=== PATIENT | female | born 1965 | race African-American/Black ===

== ENCOUNTER 2017-01-04 06:35 | Emergency (ER) | payer OTHER ==
[2017-01-04] MEDS ORDERED: Ibuprofen 800 MG TAB ONE (06:57)
--- NOTE | 2017-01-04 08:22 | RAD ---
LEFT SHOULDER 3 VIEWS: Date: 01/04/17 HISTORY: Left shoulder pain. Injury. COMPARISON: None. FINDINGS: No acute fracture or malalignment. Ribs are unremarkable. IMPRESSION: No acute injury. POS: MED
== END 2017-01-04 07:43 | disposition home or self-care (01) ==
LOC: ERS 06:35
DX: S43.402A Unspecified sprain of left shoulder joint, initial encounter (principal); I10 Essential (primary) hypertension; F17.210 Nicotine dependence, cigarettes, uncomplicated; X50.9XXA Other and unspecified overexertion or strenuous movements or postures, initial encounter

== ENCOUNTER 2017-04-11 10:50 | Emergency (ER) | payer OTHER ==
[2017-04-11 11:22] LABS: Bilirubin Small (Negative); Blood, Urine Moderate (Negative); Clarity Cloudy (Clear); Glucose, Urine (Dipstick) Negative (Negative); Leukocyte Negative (Negative); Nitrite Negative (Negative); Protein, Urine (Dipstick) > or equal to 300 mg/dL (Neg-Trace); Specific Gravity, Urine 1.033 (1.002-1.036); Urobilinogen 0.2 mg/dL (0.2-1.0); pH, Urine 5.5 (5.0-9.0)
[2017-04-11 11:24] LABS: Pregnancy Test - Urine (BHCG) Negative (Negative); Pregu Control Background? CLEAR/WHITE (CLR/WHITE); Pregu Control Bar Appear? YES (CONTROL BAR); Specific Gravity 1.033 (1.002-1.036)
[2017-04-11] MEDS ORDERED: Ketorolac Tromethamine 60 MG/2 ML VIAL ONE (11:28)
[2017-04-11] MEDS ORDERED: Ondansetron ODT 4 MG TAB ONE (11:29)
[2017-04-11 11:32] LABS: Bacteria/HPF 1+ HPF (None Seen); WBC/HPF 0-3 HPF (0-3)
[2017-04-11 11:33] LABS: Crystals/HPF 1+ AMORPH URATES HPF (Negative); Hyaline Casts/LPF 0-3 HYALINE CAST LPF (0-3 Hyaline); Other Casts/LPF 0-3 FINELY GRAN LPF (0-3 Hyaline)
== END 2017-04-11 12:09 | disposition home or self-care (01) ==
LOC: SCSER 10:50
DX: R11.2 Nausea with vomiting, unspecified (principal); I10 Essential (primary) hypertension; F17.210 Nicotine dependence, cigarettes, uncomplicated
CPT/HCPCS: 81003; 81015; 81025; 87086; 87804; 99284; J1885; Q0162

== ENCOUNTER 2017-06-28 12:26 | Outpatient (CLI) | payer OTHER ==
--- NOTE | 2017-07-12 15:33 | ULT ---
LOWER EXTREMITY ARTERIAL EVALUATION: Lower extremity arterial evaluation was performed using Doppler waveform analysis and segmental limb pressures. Waveforms are essentially normal in both lower extremities from femoral to pedal vessels with ankle-a rm index slightly elevated on the right at 1.48 and on the left at 1.36. Toe-brachial index normal. This is a normal resting arterial study of the lower extremities and would not be consistent with vas cular claudication.
== END 2017-06-28 12:27 | disposition home or self-care (01) ==
LOC: ULT 12:26
PROVIDERS: ATTEND Family Medicine
DX: R29.898 Other symptoms and signs involving the musculoskeletal system (principal)
CPT/HCPCS: 93923

== ENCOUNTER 2017-12-27 07:49 | Day surgery (SDC) | payer OTHER ==
[2017-12-24 08:38] VITALS: BMI 36.3
[2017-12-27 08:24] LABS: Hemoglobin 14.8 g/dL (12.0-16.0); Mean Corpuscular HGB CONC 31.7 g/dL (32.0-36.0); Mean Corpuscular Hemoglobin 27.1 pg (27.0-31.0); Mean Corpuscular Volume 85.5 fL (78.0-98.0); Mean Platelet Volume 9.2 fL (7.4-10.4); Platelet Count 262 thou/uL (130-400); Red Blood Cell (RBC) Count 5.45 mill/uL (4.20-5.40); White Blood Cell (WBC) Count 7.2 thou/uL (4.8-10.8)
[2017-12-27 08:34] LABS: Prothrombin Time 13.1 SEC (12.0-14.7)
[2017-12-27 08:40] LABS: Eosinophils 2 % (0-10); Lymphocytes 25 % (21-51); MDiff Complete? YES; Monocytes 2 % (0-10); Neutrophil 71 % (42-75); PLT Morphology Comment Appears Adequate
[2017-12-27 08:47] LABS: Anion Gap 12 mmol/L (10-20); BUN (Urea Nitrogen) 11 mg/dL (9.8-20.1); Calc. Creatinine Clearance 122 mL/min (70-130); Calcium 9.9 mg/dL (7.8-10.44); Carbon Dioxide 22 mmol/L (22-29); Chloride 110 mmol/L (98-107); Estimated GFR-MDRD 89; Glucose 90 mg/dL (70-105); Potassium 3.9 mmol/L (3.5-5.1); Sodium 140 mmol/L (136-145)
[2017-12-27] MEDS ORDERED: Lidocaine 1% (PF) 30 ML VIAL ONE (09:41)
[2017-12-27] MEDS ORDERED: Propofol 500 MG/50 ML VIAL ONE ×3 (09:41→10:34)
[2017-12-27] MEDS ORDERED: Midazolam HCl 2 mg/2 ml Vial ONE (10:01)
[2017-12-27] MEDS ORDERED: Fentanyl 100 MCG/2 ML VIAL ONE (10:07)
[2017-12-27] MEDS ORDERED: Isoproterenol 0.2 MG/1 ML AMP ONE (10:13)
[2017-12-27] MEDS ORDERED: PROPOFOL 200 MG/20 ML VIAL ONE (10:49)
--- NOTE | 2017-12-27 11:22 | OP ---
DATE OF PROCEDURE: 12/27/2017 SURGEON: Dr. Nai Vee PROCEDURE: SVT ablation. PREOPERATIVE DIAGNOSIS: Supraventricular tachycardia. PROCEDURE DETAILS: The patient came to the EP Lab in the postabsorptive state. Informed consent was obtained. A timeout was called. The patient was sedated by a member of the Anesthesia staff. Once patient was adequately sedated, the right and left femoral regions were prepped and draped in usual sterile fashion. Using a modified Seldinger technique and with ultrasound guided access, access was obtained x2 in the right femoral vein and x2 in the left femoral vein, an 8 Italian sheath and a 6 German nch sheath were advanced in the right femoral vein, two 6 Italian sheaths were placed in the left femo ral vein. A quadripolar catheter was advanced from the right femoral vein placed in the high right a trium. A Decapolar catheter was advanced in the right femoral vein, placed into the coronary sinus f or left atrial pacing and recording and an octapolar catheter was advanced in the left femoral vein, placed in the His bundle and a Decapolar catheter was advanced in the left groin for RV pacing and re cording. Basic intervals were as follows; cycle length was 523, W[place] interval 159. QRS 73, QT 328, AH was 97 an d HV was 37 milliseconds. AV Wenckebach occurred at approximately 270 milliseconds. AV darwin reentr ant tachycardia was easily inducible with AV pacing. VA conduction was present and concentric. Paci ng in the coronary sinus lead to easily inducible AV NRT. The ventricular overdrive pacing demonstr ated AV response, excluding the possibility of atrial tachycardia. Based on this, the atrial cathete r was removed and an S-curve 4 mm tip Biosense ablation catheter was advanced. A 3D anatomical map w as made of the His bundle region and the ablation catheter was placed along the slow pathway area usi ng the fluoroscopic an electrophysiologic guidance. RF was delivered in that region initially a 15 s econd lesion and then a 30 second lesion with good junctional beats. After this, the patient was no longer inducible for any SVT with and without isoproterenol boluses. The patient tolerated the proce dure well. The catheters were removed, sheaths were removed and hemostasis obtained with manual pres sure. POSTOPERATIVE DIAGNOSIS: SVT. COMPLICATIONS: None acute. ESTIMATED BLOOD LOSS: Less than 30 mL. CONCLUSIONS: 1. Normal AV conduction. 2. Easily inducible AV node reentrant tachycardia. 3. 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 PROCEDURE PERFORMED: Comprehensive EP study, CS LA pacing drug and 3D mapping. RECOMMENDATIONS: The patient will follow up with Dr. Johnson.
== END 2017-12-27 14:31 | disposition home or self-care (01) ==
LOC: CCL 07:49
PROVIDERS: ATTEND Specialist
PROC: 02583ZZ Destruction of Conduction Mechanism, Percutaneous Approach (ICD-10-PCS; principal; 2017-12-27)
PROC: 4A023FZ Measurement of Cardiac Rhythm, Percutaneous Approach (ICD-10-PCS; principal; 2017-12-27)
PROC: 4A0234Z Measurement of Cardiac Electrical Activity, Percutaneous Approach (ICD-10-PCS; principal; 2017-12-27)
PROC: 02K83ZZ Map Conduction Mechanism, Percutaneous Approach (ICD-10-PCS; principal; 2017-12-27)
DX: I47.1 Supraventricular tachycardia (principal); K21.9 Gastro-esophageal reflux disease without esophagitis; I10 Essential (primary) hypertension; Z79.82 Long term (current) use of aspirin; Z79.899 Other long term (current) drug therapy
CPT/HCPCS: 36415; 76942; 80048; 85025; 85610; 93005; 93010; 93613; 93620; 93623; 93653; C1730; C1769; J1644; J2001; J2250; J2704; J3010

== ENCOUNTER 2018-03-06 07:44 | Emergency (ER) | payer OTHER ==
[2018-03-06] MEDS ORDERED: Ondansetron PF 4 MG/2 ML Vial ONE (08:24)
[2018-03-06 08:36] LABS: #Monocytes 0.7 thou/uL (0.11-0.59); #Neutrophils 7.5 thou/uL (1.40-6.50); %Basophils 0.3 % (0.0-1.0); %Eosinophils 0.1 % (0.0-10.0); %Lymphocytes 19.5 % (21.0-51.0); %Monocytes 6.4 % (0.0-10.0); %Neutrophils 73.7 % (42.0-75.0); Hemoglobin 14.7 g/dL (12.0-16.0); Mean Platelet Volume 9.2 fL (7.4-10.4); Platelet Count 260 thou/uL (130-400); RBC Distribution Width 13.3 % (11.5-14.5); Red Blood Cell (RBC) Count 5.66 mill/uL (4.20-5.40); White Blood Cell (WBC) Count 10.1 thou/uL (4.8-10.8)
[2018-03-06 08:58] LABS: Bilirubin Negative (Negative); Blood, Urine Large (Negative); Clarity TURBID (Clear); Glucose, Urine (Dipstick) Negative (Negative); Leukocyte Negative (Negative); Nitrite Negative (Negative); Protein, Urine (Dipstick) 300 mg/dL (Neg-Trace); Specific Gravity, Urine 1.031 (1.002-1.036); Urobilinogen 0.2 mg/dL (0.2-1.0); pH, Urine 5.5 (5.0-9.0)
[2018-03-06 09:02] LABS: ALT (SGPT) 21 U/L (8-55); AST (SGOT) 20 U/L (5-34); Albumin 4.6 g/dL (3.5-5.0); Alkaline Phosphatase 108 U/L (40-150); Anion Gap 15 mmol/L (10-20); BUN (Urea Nitrogen) 16 mg/dL (9.8-20.1); Bilirubin, Total 0.4 mg/dL (0.2-1.2); Calc. Creatinine Clearance 0 mL/min (70-130); Calcium 10.4 mg/dL (7.8-10.44); Carbon Dioxide 24 mmol/L (22-29); Chloride 104 mmol/L (98-107); Estimated GFR-MDRD 76; Globulin 4.2 g/dL (2.4-3.5); Glucose 128 mg/dL (70-105); Hyaline Casts/LPF 0-3 HYALINE CAST LPF (0-3 Hyaline); Lipase 5 U/L (8-78); Pathc Cast-AUWi Flag 0.29 (0-2.49); Potassium 3.9 mmol/L (3.5-5.1); Protein, Total 8.8 g/dL (6.0-8.3); Sodium 139 mmol/L (136-145); WBC/HPF 0-3 HPF (0-3)
[2018-03-06 09:21] LABS: Bacteria/HPF Rare-Few HPF (None Seen); Crystals/HPF 4+ AMORPH URATES HPF (Negative); Yeast-All Forms None Seen HPF (None Seen)
== END 2018-03-06 09:35 | disposition home or self-care (01) ==
LOC: ERS 07:44
DX: K52.9 Noninfective gastroenteritis and colitis, unspecified (principal); I10 Essential (primary) hypertension; I48.91 Unspecified atrial fibrillation; K21.9 Gastro-esophageal reflux disease without esophagitis; F17.210 Nicotine dependence, cigarettes, uncomplicated; Z79.82 Long term (current) use of aspirin; Z79.899 Other long term (current) drug therapy
CPT/HCPCS: 36415; 80053; 81003; 81015; 83690; 85025; 87086; 96361; 96374; J2405

== ENCOUNTER 2018-06-03 15:46 | Outpatient (CLI) | payer OTHER ==
--- NOTE | 2018-06-13 13:19 | MMO ---
Bilateral MAMMO Bilat Screen [facility]. CLINICAL HISTORY: Patient is 53 years old and is seen for screening. The patient has no family history of breast cancer. The patient has no personal history of cancer. VIEWS: The views performed were: bilateral craniocaudal with tomosynthesis and bilateral mediolateral oblique with tomosynthesis. FILMS COMPARED: The present examination has been compared to prior imaging studies performed at [facility] on 12/26/2015 and 01/08/2016. MAMMOGRAM FINDINGS: There are scattered fibroglandular densities. Finding 1: Benign calcifications are noted bilaterally. There are no suspicious masses, calcifications or areas of architectural distortion. Finding 2: There is a stable intramammary lymph node seen in the right breast. IMPRESSION: ALL ABOVE FINDINGS ARE BENIGN. A ROUTINE FOLLOW-UP MAMMOGRAM IN 1 YEAR IS RECOMMENDED. THE RESULTS OF THIS EXAM WERE SENT TO THE PATIENT. ACR BI-RADS Category 2 - Benign finding MAMMOGRAPHY NOTE: 1. A negative mammogram report should not delay a biopsy if a dominant of clinically suspicious mass is present. 2. Approximately 10% to 15% of breast cancers are not detected by mammography. 3. Adenosis and dense breasts may obscure an underlying neoplasm.
== END 2018-06-03 15:47 | disposition home or self-care (01) ==
LOC: BICMAMMO 15:46
PROVIDERS: ATTEND Family Medicine
DX: Z12.31 Encounter for screening mammogram for malignant neoplasm of breast (principal)
CPT/HCPCS: 77063; 77067

== ENCOUNTER 2018-09-08 09:17 | Outpatient (CLI) | payer OTHER ==
--- NOTE | 2018-09-08 09:16 | MRI ---
MRI Lumbar Spine Noncontrast: HISTORY: Degenerative disc disease lumbar spine. Patient complains of low back pain for months with radiation of pain into both legs. COMPARISON: None FINDINGS: The visualized retroperitoneal structures demonstrate a normal appearance. Conus medullaris is normal in morphology and is low lying terminating at the L2-3 level. Endplate degenerative changes are seen at the L4-5 and L5-S1 intervertebral disc spaces. T11-12 level: There is a mild disc osteophyte complex which narrows the ventral subarachnoid space. T he right neural foramen is patent, there is mild left-sided neural foraminal narrowing. T12-L1 level: There is no disc bulge or disc herniation. Central spinal canal and neural foramina are patent. L1-2: There is no disc bulge or disc herniation. Central spinal canal and neural foramina are patent. L2-3: There is no disc bulge or disc herniation. Central spinal canal and neural foramina are patent. Mild facet degenerative changes are present. L3-4: There is mild loss of intervertebral disc height. There is broad-based disc osteophyte complex present. Facet hypertrophic changes and ligamentous thickening are noted. There is mild generalized narrowing of the central spinal canal. Neural foramina are patent. L4-5: There is trace grade 1 anterolisthesis of L4 on L5. This was also seen on radiographs of the dexter mbar spine on 06/24/2017. There are prominent facet hypertrophic changes noted as well as ligamentous thickening. A mild broad-based disc osteophyte complex is present. There is no significant narrowing of the central spinal canal. Mild bilateral neural foraminal narrowing is present greater on the right. L5-S1: There is loss of intervertebral disc height with endplate degenerative changes. There is mild broad-based disc osteophyte complex present with facet hypertrophic changes noted. Osteophytes are seen anteriorly at this level. There is no significant narrowing of the central spinal canal. Moderat e right sided neural foraminal narrowing with mild/moderate left-sided neural foraminal narrowing is present. IMPRESSION: 1. Degenerative changes in the lumbar spine greatest at the L4-5 and L5-S1 levels. There is moderate right and mild to moderate left-sided neural foraminal narrowing at the L5-S1 level. 2. Trace anterolisthesis of L4 on L5 related to prominent facet degenerative changes.
== END 2018-09-08 09:18 | disposition home or self-care (01) ==
LOC: BICMRI 09:17
PROVIDERS: ATTEND Family Medicine
DX: M51.36 Other intervertebral disc degeneration, lumbar region (principal); M47.816 Spondylosis without myelopathy or radiculopathy, lumbar region; M47.817 Spondylosis without myelopathy or radiculopathy, lumbosacral region; M48.07 Spinal stenosis, lumbosacral region
CPT/HCPCS: 72148

== ENCOUNTER 2018-10-06 04:31 | Emergency (ER) | payer OTHER ==
[2018-10-06] MEDS ORDERED: Ibuprofen 800 MG TAB ONE (05:13)
--- NOTE | 2018-10-06 07:41 | RAD ---
3 views thoracic spine: 10/06/2018 COMPARISON: None HISTORY: Injury, trauma, pain FINDINGS: At C5-6 and C6-7 there is disc space narrowing and anterior osteophyte formation noted on t he swimmer's lateral view. PA and lateral imaging of the thoracic spine also provided, demonstrating mild disc space narrowing a nd anterior osteophyte formation at T11-12. Thoracic pedicles appear intact on frontal imaging. No displaced fracture. IMPRESSION: Degenerative disc disease as detailed above.
== END 2018-10-06 05:38 | disposition home or self-care (01) ==
LOC: ERS 04:31
DX: S20.229A Contusion of unspecified back wall of thorax, initial encounter (principal); I48.91 Unspecified atrial fibrillation; K21.9 Gastro-esophageal reflux disease without esophagitis; I10 Essential (primary) hypertension; Z79.899 Other long term (current) drug therapy; Z79.82 Long term (current) use of aspirin; Y04.0XXA Assault by unarmed brawl or fight, initial encounter
CPT/HCPCS: 72072

== ENCOUNTER 2019-03-24 20:46 | Emergency (ER) | payer OTHER ==
[2019-03-24] MEDS ORDERED: Acetaminophen 500 MG TAB ONE (20:59)
--- NOTE | 2019-03-24 21:27 | RAD ---
XR Hip Lt 2-3 View HISTORY: Hip pain. COMPARISON: None. FINDINGS: There is no signs of fracture or dislocation. Minimal osteophytic changes along the acetabu lum are noted. No joint space narrowing. IMPRESSION: No acute changes.
--- NOTE | 2019-03-24 21:28 | RAD ---
XR Wrist 3 Lt View STANDARD HISTORY: Wrist pain COMPARISON: None FINDINGS: Fairly minimal arthritic changes of the triscaphe the and first carpal metacarpal joint spa alfredo are seen. Small cyst is seen involving the lunate with a borderline ulna plus variant, this raises the possibility of an underlying triangular fibrocartilage injury. No acute changes. IMPRESSION: No acute findings.
== END 2019-03-24 21:55 | disposition home or self-care (01) ==
LOC: ERS 20:46
DX: M25.532 Pain in left wrist (principal); M25.552 Pain in left hip; I10 Essential (primary) hypertension; K21.9 Gastro-esophageal reflux disease without esophagitis; I48.91 Unspecified atrial fibrillation; F17.210 Nicotine dependence, cigarettes, uncomplicated; Z79.82 Long term (current) use of aspirin; Z79.899 Other long term (current) drug therapy; W10.9XXA Fall (on) (from) unspecified stairs and steps, initial encounter; Y99.0 Civilian activity done for income or pay

== ENCOUNTER 2019-08-23 09:28 | Outpatient (CLI) | payer OTHER ==
--- NOTE | 2019-08-23 10:48 | MMO ---
Bilateral MAMMO Bilat Diag [facility]. CLINICAL HISTORY: Patient is 54 years old and is seen for diagnostic exam and palpable abnormality in the right breast. The patient has no family history of breast cancer. The patient has no personal history of cancer. VIEWS: The views performed were: bilateral craniocaudal with tomosynthesis; bilateral mediolateral oblique with tomosynthesis; and bilateral mediolateral with tomosynthesis. FILMS COMPARED: The present examination has been compared to prior imaging studies performed at [facility] on 01/08/2016, 06/03/2018 and 08/23/2019. This study has been interpreted with the assistance of computer-aided detection. MAMMOGRAM FINDINGS: The breasts are almost entirely fat. Finding 1: There are stable benign appearing calcifications seen in both breasts. Finding 2: There is a stable intramammary lymph node seen in the upper-outer region of the right breast. This corresponds to the area of palpable concern. No additional abnormality is evident in this location sonographically. There are no suspicious masses, suspicious calcifications, or new areas of architectural distortion. IMPRESSION: THERE IS NO MAMMOGRAPHIC EVIDENCE OF MALIGNANCY. A ROUTINE FOLLOW-UP MAMMOGRAM IN 1 YEAR IS RECOMMENDED. THE RESULTS OF THIS EXAM WERE SENT TO THE PATIENT. ACR BI-RADS Category 2 - Benign finding MAMMOGRAPHY NOTE: 1. A negative mammogram report should not delay a biopsy if a dominant of clinically suspicious mass is present. 2. Approximately 10% to 15% of breast cancers are not detected by mammography. 3. Adenosis and dense breasts may obscure an underlying neoplasm. Reported by: LORETO AYALA MD Electonically Signed: [id number]
--- NOTE | 2019-08-23 10:49 | ULT ---
EXAM: US Breast Limited Right PROVIDED CLINICAL HISTORY: Right breast palpable abnormality COMPARISON: Concurrently performed diagnostic mammogram Prior screening mammograms FINDINGS: Limited sonographic interrogation was performed of the right breast in the region of palpable concern . An intramammary lymph node is demonstrated in this location. There is diffuse cortical thickening with preservation of hilum. This measures approximately 9 mm. This appears mammographically stable wi th respect to multiple prior examinations. IMPRESSION: Palpable abnormality corresponds to a mammographically stable intramammary lymph node. BI-RADS 2 -- benign findings
--- NOTE | 2019-08-23 11:46 | ULT ---
EXAM: US Breast Limited Right PROVIDED CLINICAL HISTORY: Right breast palpable abnormality COMPARISON: Concurrently performed diagnostic mammogram Prior screening mammograms FINDINGS: Limited sonographic interrogation was performed of the right breast in the region of palpable concern . An intramammary lymph node is demonstrated in this location. There is diffuse cortical thickening with preservation of hilum. This measures approximately 9 mm. This appears mammographically stable wi th respect to multiple prior examinations. IMPRESSION: Palpable abnormality corresponds to a mammographically stable intramammary lymph node. BI-RADS 2 -- benign findings Transcribed Date/Time: 08/23/2019 11:46 AM BI-RADS 2 -- benign findings
== END 2019-08-23 09:29 | disposition home or self-care (01) ==
LOC: BICMAMMO 09:28
PROVIDERS: ATTEND Family Medicine
DX: N63.10 Unspecified lump in the right breast, unspecified quadrant (principal)
CPT/HCPCS: 77066; G0279

== ENCOUNTER 2020-06-13 11:18 | Outpatient (CLI) | payer OTHER | END 2020-06-13 11:19 | disposition home or self-care (01) | LOC: BICMRI 11:18 | PROVIDERS: ATTEND Family Medicine | DX: M65.4 Radial styloid tenosynovitis [de Quervain] (principal) ==

== ENCOUNTER 2020-07-18 10:11 | Emergency (ER) | payer OTHER ==
[2020-07-18] MEDS ORDERED: Ondansetron PF 4 MG/2 ML Vial ONE (10:26)
[2020-07-18 10:44] LABS: #Basophils 0.1 thou/uL (0.0-0.2); #Lymphocytes 1.7 thou/uL (1.20-3.40); #Monocytes 0.5 thou/uL (0.11-0.59); #Neutrophils 1.9 thou/uL (1.40-6.50); %Basophils 1.7 % (0.0-1.0); %Eosinophils 0.3 % (0.0-10.0); %Lymphocytes 39.5 % (21.0-51.0); %Monocytes 12.6 % (0.0-10.0); %Neutrophils 45.9 % (42.0-75.0); Hemoglobin 15.6 g/dL (12.0-16.0); Mean Corpuscular HGB CONC 32.5 g/dL (32.0-36.0); Mean Corpuscular Hemoglobin 27.3 pg (27.0-31.0); Mean Corpuscular Volume 84.1 fL (78.0-98.0); Mean Platelet Volume 9.9 fL (7.4-10.4); Platelet Count 197 thou/uL (130-400); RBC Distribution Width 13.4 % (11.5-14.5); Red Blood Cell (RBC) Count 5.71 mill/uL (4.20-5.40); White Blood Cell (WBC) Count 4.2 thou/uL (4.8-10.8)
[2020-07-18 11:01] LABS: ALT (SGPT) 21 U/L (8-55); AST (SGOT) 28 U/L (5-34); Albumin 4.6 g/dL (3.5-5.0); Alkaline Phosphatase 110 U/L (40-110); Anion Gap 16 mmol/L (10-20); BUN (Urea Nitrogen) 10 mg/dL (9.8-20.1); Bilirubin, Total 0.3 mg/dL (0.2-1.2); Calc. Creatinine Clearance 0 mL/min (70-130); Calcium 9.9 mg/dL (7.8-10.44); Carbon Dioxide 20 mmol/L (22-29); Chloride 104 mmol/L (98-107); Globulin 4.2 g/dL (2.4-3.5); Glucose 122 mg/dL (70-105); Lipase 20 U/L (8-78); Potassium 3.6 mmol/L (3.5-5.1); Protein, Total 8.8 g/dL (6.0-8.3); Sodium 136 mmol/L (136-145)
== END 2020-07-18 13:05 | disposition home or self-care (01) ==
LOC: ERS 10:11
DX: R11.2 Nausea with vomiting, unspecified (principal); R19.7 Diarrhea, unspecified; R10.84 Generalized abdominal pain; Z79.899 Other long term (current) drug therapy; Z79.82 Long term (current) use of aspirin; I10 Essential (primary) hypertension; K21.9 Gastro-esophageal reflux disease without esophagitis; I48.91 Unspecified atrial fibrillation; F17.210 Nicotine dependence, cigarettes, uncomplicated
CPT/HCPCS: 80053; 83690; 85025; 96374; J2405

== ENCOUNTER 2020-09-18 11:12 | Outpatient (CLI) | payer OTHER | END 2020-09-18 11:13 | disposition home or self-care (01) | LOC: BICMAMMO 11:12 | PROVIDERS: ATTEND Family Medicine | DX: Z12.31 Encounter for screening mammogram for malignant neoplasm of breast (principal) | CPT/HCPCS: 77063; 77067 ==

== ENCOUNTER 2020-12-25 07:22 | Outpatient (CLI) | payer OTHER | END 2020-12-25 07:23 | disposition home or self-care (01) | LOC: RAD 07:22 | PROVIDERS: ATTEND Family Medicine | DX: M25.511 Pain in right shoulder (principal) ==

== ENCOUNTER 2021-02-18 08:43 | Emergency (ER) | payer OTHER ==
[2021-02-18] MEDS ORDERED: Fluorescein Opthalmic Strip ONE (09:51)
[2021-02-18] MEDS ORDERED: Proparacaine 0.5% Opth 15 ML BOT ONE (09:51)
== END 2021-02-18 10:40 | disposition home or self-care (01) ==
LOC: ERS 08:43
DX: H10.89 Other conjunctivitis (principal); I10 Essential (primary) hypertension; E78.5 Hyperlipidemia, unspecified; E78.00 Pure hypercholesterolemia, unspecified; I48.91 Unspecified atrial fibrillation; K21.9 Gastro-esophageal reflux disease without esophagitis; F17.210 Nicotine dependence, cigarettes, uncomplicated; Z79.82 Long term (current) use of aspirin; Z79.899 Other long term (current) drug therapy
CPT/HCPCS: 99283

== ENCOUNTER 2021-09-08 07:37 | Emergency (ER) | payer OTHER, BC ==
[2021-09-08] MEDS ORDERED: Ketorolac Tromethamine 30 MG/ML VIAL ONE (08:21)
[2021-09-08] MEDS ORDERED: Acetaminophen 500 MG TAB ONE (08:21)
== END 2021-09-08 09:35 | disposition home or self-care (01) ==
LOC: ERS 07:37
DX: S39.012A Strain of muscle, fascia and tendon of lower back, initial encounter (principal); M25.552 Pain in left hip; V43.53XA Car driver injured in collision with pick-up truck in traffic accident, initial encounter
CPT/HCPCS: 72170; 96372; J1885

== ENCOUNTER 2022-02-09 14:41 | Outpatient (CLI) | payer BC | END 2022-02-09 14:42 | disposition home or self-care (01) | LOC: BICMAMMO 14:41 | PROVIDERS: ATTEND Family Medicine | DX: N63.14 Unspecified lump in the right breast, lower inner quadrant (principal) | CPT/HCPCS: 77066; G0279 ==

== ENCOUNTER 2024-01-06 06:38 | Emergency (ER) | payer BC | END 2024-01-06 07:17 | disposition home or self-care (01) | LOC: ERS 06:38 | DX: L02.213 Cutaneous abscess of chest wall (principal); E78.5 Hyperlipidemia, unspecified; I10 Essential (primary) hypertension | CPT/HCPCS: 10060 ==

== ENCOUNTER 2024-10-13 06:57 | Day surgery (SDC) | payer OTHER ==
[2024-10-09 15:38] VITALS: BMI 36.6
[2024-10-13] MEDS ORDERED: Bupivacaine 0.25% HCL 30 ML VIAL ONE (07:51)
[2024-10-13] MEDS ORDERED: Ropivacaine 0.2% HCl/PF 20 ML ONE (08:21)
[2024-10-13] MEDS ORDERED: Ropivacaine 0.5% HCl/PF (150 MG/30 ML VIAL) ONE (08:21)
[2024-10-13] MEDS ORDERED: fentaNYL PF 100 MCG/2 ML SYRINGE ONE (08:22)
[2024-10-13] MEDS ORDERED: PROPOFOL 40 ML ONE (08:22)
[2024-10-13] MEDS ORDERED: Ondansetron PF 4 MG/2 ML Vial ONE (08:23)
[2024-10-13] MEDS ORDERED: Lidocaine 1% PF 5 ML VIAL ONE (08:23)
[2024-10-13] MEDS ORDERED: CEFAZOLIN 2 GM VIAL ONE (09:11)
[2024-10-13] MEDS ORDERED: Ondansetron PF 4 MG/2 ML Vial IVP PRN (09:15)
[2024-10-13] MEDS ORDERED: HYDROcodone/Acetaminophen 10/325 mg Tablet PO PRN ×2 (09:15)
[2024-10-13] MEDS ORDERED: Ropivacaine 0.2% 550 ML 550 ML NERVE BLCK SCH (09:15)
[2024-10-13] MEDS ORDERED: PHENYLEPHRINE-NS 100 MCG/ML 10 ML SYRINGE ONE ×2 (09:49→10:17)
[2024-10-13] MEDS ORDERED: Rocuronium Bromide 10 MG/ML (10ML VIAL) ONE (09:49)
[2024-10-13] MEDS ORDERED: SUGAMMADEX SODIUM 200 MG/2 ML VIAL ONE (11:13)
[2024-10-13] MEDS ORDERED: Ketorolac Tromethamine 30 MG (1 mL) VIAL IVP SCH (12:00)
== END 2024-10-13 13:14 | disposition home or self-care (01) ==
LOC: SDC 06:57
PROVIDERS: ATTEND Orthopaedic Surgery
DX: M67.912 Unspecified disorder of synovium and tendon, left shoulder (principal); M75.22 Bicipital tendinitis, left shoulder
CPT/HCPCS: A4306; C1713; C1894; J0665; J1100; J2250; J2405; J2704; J2795; J3010